=== PATIENT | female | born 1985 | race Two or more races ===

== ENCOUNTER 2017-12-11 07:00 | Day surgery (SDC) | payer OTHER ==
[~2017-12-11 07:00] MED LIST: LEVAQUIN750 MG PO; URETRON D/S TAB1 TAB PO
[2017-12-11] MEDS ORDERED: DOXYCYCLINE HY100 MG PO (12:36)
[2017-12-11] MEDS ORDERED: CODE1TAB37 PO (12:36)
== END 2017-12-11 17:25 | disposition home or self-care (01) ==
LOC: CIR.AMB 07:00
DX: D25.0 Submucous leiomyoma of uterus (principal)